=== PATIENT | male | born 1995 | race Caucasian/White ===

== ENCOUNTER 2024-04-27 21:01 | Emergency (ER) | payer OTHER, SELFPAY ==
[2024-04-27 21:15] VITALS: BP 178/93; PULSE 111; RESP 16; TEMP 37.6; O2SAT 96; BMI 30.9
--- NOTE | 2024-04-27 21:22 | ED.GENADULT ---
HPI - General Adult General Chief complaint: Ear Stated complaint: ear infection Time Seen by Provider: 04/27/24 21:04 Source: patient Mode of arrival: Ambulatory Limitations: no limitations History of Present Illness HPI narrative: Otherwise healthy 28-year-old male here for evaluation of what he thinks as a right-sided ear infection. He states that over the past 24 hours he was had increasing pain in his right ear now drainage. Decreased hearing. No sinus congestion. No sore throat. No fevers. Has not tried anything for symptoms prior to arrival. Related Data Previous Rx's Medication Instructions Recorded azithromycin 250 mg tablet 250 mg PO DAILY 4 days #4 tabs 04/27/24 ciprofloxacin 0.2 %-hydrocortisone 3 drp EAR-RIGHT TID 7 days #10 mL 04/27/24 1 % ear drops,suspension Allergies Allergy/AdvReac Type Severity Reaction Status Date / Time amoxicillin Allergy Verified 04/27/24 21:19 Review of Systems Constitutional Constitutional: Reports system reviewed and no additional complaints, except as documented ENT Ears, Nose, Mouth, and Throat: Reports system reviewed and no additional complaints, except as documented Patient History Social History Smoking Status: Never smoker Smoking Status: Never smoker alcohol intake frequency: a few times a month Substance Use Type: does not use Exam Initial Vital Signs Initial Vital Signs: Vital Signs Temperature 99.7 F H 04/27/24 21:15 Pulse Rate 111 H 04/27/24 21:15 Respiratory Rate 16 04/27/24 21:15 Blood Pressure 178/93 H 04/27/24 21:15 Pulse Oximetry 96 04/27/24 21:15 Oxygen Delivery Method Room Air 04/27/24 21:15 [facility] Ears: TM normal on the left, mastoids normal, EAC abnormal erythema on the right; not on the left and TM abnormal bulging on the right, dull on the right, wth effusion purulent on the right, erythematous on the right, with fluid behind the TM on the right and with loss of landmarks on the right Mouth: oral mucosae normal and moist mucous membranes Skin General: no rashes or lesions noted Course Orders Ordered: Discontinued Medications Azithromycin (Azithromycin 250 Mg Tablet) 500 mg PO NOW ONE Stop: 04/27/24 21:25 Last Admin: 04/27/24 21:27 Dose: 500 mg Documented By: DIO Vital Signs Vital signs: Vital Signs - 8 hr 04/27/24 21:15 04/27/24 21:28 Temperature 99.7 F H Pulse Rate 111 H 102 H Respiratory Rate 16 16 Blood Pressure 178/93 H Pulse Oximetry 96 Oxygen Delivery Method Room Air Medical Decision Making MDM Narrative Medical decision making narrative: Patient has a obvious right-sided otitis media. He was unable to do a Valsalva maneuver. He does have purulent drainage from the right external auditory canal however he only has very slight erythematous areas of the external auditory canal. I do not see an overt tympanic membrane rupture however this is a possibility. I do feel that the patient needs treated for both a otitis externa and otitis media. He was given an oral dose of antibiotics here in the ER and a prescription for antibiotic drops and oral antibiotics was sent to the pharmacy of his choice. He was given return precautions and follow-up instructions. He expressed understanding and. Discharge Plan Departure Patient Disposition: Home Clinical Impression: Otitis externa, Otitis media Instructions: Middle Ear Infection, DI for Otitis Externa Activity Restrictions/Additional Instructions: You are going to need to follow-up with your flank surgeon before you can fly again. [facility] Please start taking them as directed. Return to the emergency department for new symptoms. Prescriptions: New azithromycin 250 mg tablet 250 mg PO DAILY 4 Days Qty: 4 0RF Rx Instructions: start on day 2 of therapy ciprofloxacin-hydrocortisone 0.2-1 % drops,suspension 3 drp EAR-RIGHT TID 7 Days Qty: 10 1RF Stand Alone Forms: Patient Portal/API
[2024-04-27] MEDS: AZITHROMYCIN 250 MG TABLET 500 MG PO (21:27)
[2024-04-27 21:28] VITALS: PULSE 102; RESP 16
== END 2024-04-27 21:30 | disposition home or self-care (01) ==
PROVIDERS: Emergency Provider Emergency Medicine
DX: H60.91 Unspecified otitis externa, right ear (principal); H66.91 Otitis media, unspecified, right ear
CPT/HCPCS: 99283